=== PATIENT | male | born 1960 | race Caucasian/White ===

== ENCOUNTER 2024-04-07 08:40 | Outpatient (CLI) | payer OTHER | END 2024-04-07 08:41 | disposition home or self-care (01) | LOC: CSHSPEC 08:40 | PROVIDERS: ATTEND Urology | DX: Z01.818 Encounter for other preprocedural examination (principal); R97.20 Elevated prostate specific antigen [PSA] | CPT/HCPCS: 71045; 72197 ==

== ENCOUNTER 2024-12-16 08:58 | Outpatient (CLI) | payer MEDICARE, OTHER | END 2024-12-16 08:59 | disposition home or self-care (01) | LOC: CSHMRI 08:58 | PROVIDERS: ATTEND Urology | DX: Z01.818 Encounter for other preprocedural examination (principal); R97.20 Elevated prostate specific antigen [PSA]; Z95.810 Presence of automatic (implantable) cardiac defibrillator | CPT/HCPCS: 71045; 72197 ==